=== PATIENT | male | born 1985 | race Caucasian/White ===

== ENCOUNTER 2019-08-20 22:50 | Emergency (ER) | payer MEDICAID, SELFPAY ==
[2019-08-20 22:52] VITALS: BP 129/81; PULSE 95; RESP 16; TEMP 36.7; O2SAT 100; BMI 24.0
[2019-08-20 23:08] LABS: Absolute Lymphocyte Count 5.61 X10^3/uL (0.83-4.51); Absolute Neutrophil Count 7.7 X10^3/uL (2.0-7.7); Basophil# 0.11 X10^3/uL; Basophil% 0.8 % (0-1); Eosinophil# 0.37 X10^3/uL; Eosinophils% 2.5 % (0-5); Hematocrit 50.5 % (40-54); Hemoglobin 17.4 g/dL (13.0-16.5); Lymphocyte # 5.61 X10^3/ul (4.0); Lymphocyte % 38.7 % (19-41); Mean Corp Hgb Conc 34.5 g/dL (32-36); Mean Corpuscular Hgb 31.3 pg (27.0-32.0); Mean Corpuscular Volume 90.8 fL (80-94); Mean Platelet Vol. 9.8 fl (6.2-12.0); Monocyte# 0.65 X10^3/uL; Monocyte% 4.5 % (0-10); NRBC Flagged by Analyzer 0 % (0-5); Neutrophil # 7.65 X10^3/uL (2.7-7.7); Neutrophil % 52.7 % (47-70); POSITIVE DIFFERENTIAL YES; Platelet Count 269 K/mm3 (150-450); RBC Distribution Width CV 11.8 % (11.6-14.6); RBC Distribution Width SD 39.2 fl (35.1-43.9); Red Blood Count 5.56 M/mm3 (4.6-6.2); White Blood Count 14.5 K/mm3 (4.4-11.0)
[2019-08-20 23:09] VITALS: BP 136/97; PULSE 87; RESP 12; O2SAT 99
[2019-08-20 23:11] LABS: Differential Indicated SCAN CRITERIA MET
[2019-08-20 23:12] LABS: Prothrombin Time (Protime)PT. 13.1 SECONDS (11.7-14.9)
[2019-08-20 23:13] LABS: Partial Thromboplast Time 25.2 Seconds (24.1-36.2)
[2019-08-20] MEDS: Ondansetron 4 MG/2 ML Vial IV (23:14)
[2019-08-20] MEDS: 0.9% Normal Saline 1,000 ML 1000 ML IV (23:15)
[2019-08-20] MEDS: fentaNYL 100 MCG/2 ML Ampul 50 MCG IV (23:15)
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
[2019-08-20 23:21] LABS: ALB/GLOB Ratio 1.6 RATIO (0.9-2.4); AST(SGOT) 37 U/L (15-37); Alanine Aminotransfer ALT/SGPT 37 U/L (16-61); Albumin, Serum 4.7 g/dL (3.2-5.0); Alkaline Phosphatase 85 U/L (45-117); Anion Gap 7 (5-15); BUN 8 mg/dL (7-18); BUN/Creat Ratio 8.4 RATIO (10-20); Chloride 107 mmol/L (98-107); Creatinine, Serum 0.96 mg/dL (0.70-1.30); EST Glomerular Filtration Rate 96 mL/min (>60); Est Glom Filt Rate - Afr Amer 116 mL/min (>60); Estimated Creatinine Clearance 115.48 ml/min; Glucose 112 mg/dL (74-106); Potassium 3.2 mmol/L (3.5-5.1); Protein, Total 7.7 g/dL (6.4-8.2); Sodium Level 143 mmol/L (136-145)
--- NOTE | 2019-08-20 23:47 | NURSING ---
GOING TO [facility] ER BY UBALDO ARMANDO
[2019-08-20 23:52] VITALS: BP 132/94; PULSE 99; RESP 16; O2SAT 99
--- NOTE | 2019-08-20 23:53 | ED.RN ---
PER PT REQUEST, ATTEMPTING TO GET AHOLD OF MOTHER. NO ANSWER
[2019-08-20 23:58] LABS: Differential Comment SCANNED; Reactive Lymphocyte 1+
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
== END 2019-08-21 00:05 | disposition short-term general hospital (02) ==
PROVIDERS: Emergency Provider Emergency Medicine
DX: S72.402A Unspecified fracture of lower end of left femur, initial encounter for closed fracture (principal); V89.2XXA Person injured in unspecified motor-vehicle accident, traffic, initial encounter; Y93.9 Activity, unspecified; Y92.410 Unspecified street and highway as the place of occurrence of the external cause; Y99.8 Other external cause status; Z72.0 Tobacco use
CPT/HCPCS: 71045; 72170; 73552; 80053; 85025; 85610; 85730; 96361; 96374; 96375; 99285; J2405

== ENCOUNTER 2019-08-31 18:24 | Emergency (ER) | payer MEDICAID, SELFPAY ==
[2019-08-31 18:25] VITALS: BP 132/81; PULSE 97; RESP 16; TEMP 37.1; O2SAT 100; BMI 19.8
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
[2019-08-31] MEDS: oxyCODONE 5 MG Tablet 10 MG PO (19:49)
[2019-08-31 19:54] VITALS: PULSE 90; RESP 16; O2SAT 97
== END 2019-08-31 19:54 | disposition home or self-care (01) ==
PROVIDERS: Emergency Provider Emergency Medicine
DX: M79.652 Pain in left thigh (principal); M25.562 Pain in left knee; Z98.890 Other specified postprocedural states; F17.200 Nicotine dependence, unspecified, uncomplicated
CPT/HCPCS: 99283

== ENCOUNTER 2019-10-24 14:37 | Emergency (ER) | payer MEDICAID, SELFPAY ==
[2019-10-24 14:38] VITALS: BP 141/68; PULSE 65; RESP 16; TEMP 36.5; O2SAT 100; BMI 19.8
--- NOTE | 2019-10-24 15:26 | VDLE_ITS ---
Reason For Study: PAIN Procedure LEFT Exam performed portable in ED. GSV is normal. A preliminary report was called and/or faxed CFV is compressible, spontaneous, phasic, to ED. competent, and demonstrates normal augmentation. FV is compressible, spontaneous, phasic, competent and demonstrates normal augmentation. POP V is compressible, spontaneous, phasic, competent and demonstrates normal augmentation. T/P Trunk is compressible. PTV is compressible. LT PerV is compressible. Interpretation Summary Deep veins of the left lower extremity are patent and compressible segmentally. There is no evidence of left lower extremity deep vein thrombosis. Valvular competence appears intact within the proximal deep venous system on the left . The left great saphenous vein appears patent and compressible segmentally. Ordering Physician: [place] Performed By: Ambika Garcia, MINO, RVT
[2019-10-24] MEDS: Morphine 4 MG/ML Syringe IM (15:38)
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
[2019-10-24 17:22] VITALS: BP 129/74; PULSE 66; RESP 16; O2SAT 99
== END 2019-10-24 17:23 | disposition home or self-care (01) ==
PROVIDERS: Emergency Provider Emergency Medicine
DX: M25.562 Pain in left knee (principal)
CPT/HCPCS: 73560; 93971; 99282

== ENCOUNTER 2020-09-17 19:53 | Emergency (ER) | payer MEDICAID, SELFPAY ==
[2020-09-17 19:53] VITALS: BP 152/98; PULSE 85; RESP 16; TEMP 37; O2SAT 100; BMI 20.7
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
--- NOTE | 2020-09-17 20:55 | ED.VIS.GEN ---
History of Present Illness Chief Complaint: Mental Health Narrative: Patient eloped prior to being evaluated by myself. He was accompanied by his uncle. He did deny suicidal or homicidal ideation to nursing. Past Medical History - Allergies and Home Meds Allergies/Adverse Reactions: Allergies No Known Allergies Allergy (Verified 09/17/20 19:58) Primary Care Physician: Care Physician,No Primary [Primary Care Provider] - Surgical History: - - Left femur surgery Smoking Status: Heavy Smoker (>10/day) Physical Exam Vital Signs/Narrative: Vital Signs Temp Pulse Resp BP Pulse Ox 09/17/20 19:53 98.6 F 85 16 152/98 H 100 ED Disposition - Plan for ED Patient: Disposition: Home or Assisted Living Referrals: Care Physician,No Primary [Primary Care Provider] -
== END 2020-09-17 20:56 | disposition left against medical advice (07) ==
PROVIDERS: Emergency Provider Emergency Medicine
DX: F17.210 Nicotine dependence, cigarettes, uncomplicated (principal)
CPT/HCPCS: 99282

== ENCOUNTER 2022-01-19 07:49 | Emergency (ER) | payer MEDICAID, SELFPAY ==
[2022-01-19 07:52] VITALS: BP 125/91; PULSE 76; RESP 17; TEMP 36.7; O2SAT 99; BMI 20.7
--- NOTE | 2022-01-19 08:01 | ED.VIS.GI ---
HPI HPI - GI History of Present Illness Chief Complaint: Abd Pain Informant: patient Abdominal Pain/Flank Pain Onset: Today Context: Sudden Onset Timing: Continuous Quality: Sharp Location: Epigastric Worsened by: Nothing Relieved by: Nothing Nausea/Vomiting/Emesis GI Symptom: Positive for Nausea and Vomiting Quality: Positive for Nonbilious; Negative for Blood streaks, Coffee ground and Hematemesis Diarrhea/Melena/Hematochezia GI Symptom: Negative for Diarrhea, Melena and Hematochezia Associated Symptoms Associated Symptoms: Negative for Dysuria, Frequency and Hematuria Narrative Narrative: Patient presents with abdominal pain that began today. Patient states he woke up with the pain. Patient states pain is over the epigastric area. Patient denies any radiation of the pain. Patient describes his pain as sharp and stabbing. Patient states nothing makes it better nothing makes it worse. Patient admits to some nausea and vomiting. Patient states his emesis was just stomach contents. Patient denies any hematemesis or coffee-ground emesis. Patient denies any diarrhea, melena, or hematochezia. Patient denies any urinary complaints. PFSH PFSH Medical History no medical history no medical history Home Medications NK 01/19/22 [History Last Taken Unknown] Allergy/AdvReac Type Severity Reaction Status Date / Time No Known Allergies Allergy Verified 01/19/22 07:50 Surgical History no surgical history no surgical history Social History Smoking Status: Heavy Smoker (>10/day) ROS ROS ED Constitutional Constitutional ED: Denies chills or fever(s) Eyes Eyes: Denies blurry vision or change in vision ENT ENT ED: Denies rhinorrhea or sore throat Cardiovascular Cardiovascular: Denies chest pain or palpitations Respiratory/Chest Respiratory/Chest: Denies cough or dyspnea Gastrointestinal Gastrointestinal: Reports abdominal pain, nausea and vomiting; Denies diarrhea or melena Genitourinary Genitourinary ED: Denies dysuria or hematuria Musculoskeletal Musculoskeletal: Denies back pain or neck pain Integumentary Denies abscess or rash Neurologic Neurologic: Denies headache(s) or weakness Allergic/Immunologic Allergic/Immunologic ED: Denies mouth swelling or urticaria EXAM Physical Exam Const Vital Signs: 01/19/22 07:52 Temperature 98.0 F Temperature Source Temporal Pulse Rate 76 Respiratory Rate 17 Blood Pressure 125/91 H Blood Pressure Mean 102 Pulse Ox 99 Oxygen Delivery Method Room Air Positive well nourished and well developed General Appearance ED: well developed and NAD HEENT Reports moist mucous membranes Neck supple and no JVD Resp normal respiratory effort and clear to auscultation bilaterally Cardio regular rate, regular rhythm and no murmurs GI normal to inspection, nondistended, normoactive bowel sounds Auscultation: normoactive bowel sounds Palpation: soft and tender epigastric, LUQ and RUQ; Negative for guarding or rebound tenderness present Extremity normal to inspection General Extremety ED: Negative for edema or tenderness General Extremity: Negative for edema Neuro oriented x3, CN's II-XII intact bilaterally and no sensory deficits noted Sensorium / Orientation: alert Motor Exam: strength 5/5 throughout Psych mental status grossly normal Skin no rashes or lesions noted MDM MDM MDM Narrative Medical decision making narrative: Patient was given IV fluids and Zofran. CBC shows a slight leukocytosis of 11.6. Comprehensive metabolic profile was within normal limits. Lipase was normal. Urinalysis does not show any evidence of urinary tract infection. Patient was advised of his findings. Patient was given prescriptions for Zofran and omeprazole. Patient was instructed to follow-up with his primary care physician in 3 to 5 days. Patient was instructed to return if worse in any way. Patient understood and was agreeable with the plan. All questions were answered. Lab Data Attestation: I reviewed the patient's lab results. Labs: Laboratory Results - last 24 hr 01/19/22 01/19/22 01/19/22 08:05 08:05 08:51 WBC 11.6 H RBC 5.27 Hgb 15.5 Hct 45.9 MCV 87.1 MCH 29.4 MCHC 33.8 RDW Std Deviation 38.6 RDW Coeff of [place] 12.0 Plt Count 228 MPV 9.9 Immature Gran % (Auto) 0.300 Neut % (Auto) 60.8 Lymph % (Auto) 31.4 Owsley % (Auto) 3.6 Eos % (Auto) 3.2 Baso % (Auto) 0.7 Absolute Neuts (auto) 7.1 Absolute Lymphs (auto) 3.65 Nucleated RBC % 0 Sodium 141 Potassium 3.6 Chloride 108 H Carbon Dioxide 30.0 Anion Gap 3 L BUN 11 Creatinine 1.05 Estim Creat Clear Calc 92.72 Est GFR (MDRD) Af Amer 103 Est GFR (MDRD) Non-Af 85 BUN/Creatinine Ratio 10.5 Glucose 103 Calcium 8.5 Total Bilirubin 0.70 AST 12 L ALT 14 L Alkaline Phosphatase 103 Total Protein 6.4 Albumin 3.8 Globulin 2.6 Albumin/Globulin Ratio 1.5 Lipase 77 Urine Color Yellow Urine Clarity Clear Urine pH 6.0 Ur Specific [place] 1.025 Urine Protein 15 H Urine Glucose (UA) Normal Urine Ketones Negative Urine Occult Blood Negative Urine Nitrite Negative Urine Bilirubin Negative Urine Urobilinogen 1 H Ur Leukocyte Esterase Negative Urine RBC 0-5 SEEN Urine WBC 0-5 SEEN Ur Squamous Epith Cells 0 SEEN Urine Bacteria 0 SEEN Urine Mucus 0 SEEN Discharge Plan Triage Chief Complaint: Abd Pain ED Provider: [place] Dx/Rx/DC Orders Clinical Impression: Abdominal pain, acute, epigastric Instructions: ED Abdominal Pain Unkn Cause Male... Prescriptions: No Action NK RF: 0 Primary Care Provider: Care Physician,No Primary Referrals: Care Physician,No Primary [Primary Care Provider] - Disposition Disposition: Home, Self Care Discharge Date/Time: 01/19/22 10:15
[2022-01-19] MEDS: 0.9% Normal Saline 1,000 ML 1000 ML IV (08:11)
[2022-01-19] MEDS: Ondansetron 4 MG/2 ML Vial IV (08:11)
[2022-01-19 08:16] LABS: Absolute Lymphocyte Count 3.65 X10^3/uL (0.83-4.51); Absolute Neutrophil Count 7.1 X10^3/uL (2.0-7.7); Basophil# 0.08 X10^3/uL; Basophil% 0.7 % (0-1); Eosinophil# 0.37 X10^3/uL; Eosinophils% 3.2 % (0-5); Hematocrit 45.9 % (40-54); Hemoglobin 15.5 g/dL (13.0-16.5); Lymphocyte # 3.65 X10^3/ul (0.83-4.51); Lymphocyte % 31.4 % (19-41); Mean Corp Hgb Conc 33.8 g/dL (32-36); Mean Corpuscular Hgb 29.4 pg (27.0-32.0); Mean Corpuscular Volume 87.1 fL (80-94); Mean Platelet Vol. 9.9 fl (6.2-12.0); Monocyte# 0.42 X10^3/uL; Monocyte% 3.6 % (0-10); NRBC Flagged by Analyzer 0 % (0-5); Neutrophil # 7.07 X10^3/uL (2.7-7.7); Neutrophil % 60.8 % (47-70); Platelet Count 228 K/mm3 (150-450); RBC Distribution Width SD 38.6 fl (35.1-43.9); Red Blood Count 5.27 M/mm3 (4.6-6.2); White Blood Count 11.6 K/mm3 (4.4-11.0)
[2022-01-19 08:33] LABS: ALB/GLOB Ratio 1.5 RATIO (0.9-2.4); AST(SGOT) 12 U/L (15-37); Alanine Aminotransfer ALT/SGPT 14 U/L (16-61); Albumin, Serum 3.8 g/dL (3.2-5.0); Alkaline Phosphatase 103 U/L (45-117); Anion Gap 3 (5-15); BUN 11 mg/dL (7-18); BUN/Creat Ratio 10.5 RATIO (10-20); Calcium,Total 8.5 mg/dL (8.5-10.1); Chloride 108 mmol/L (98-107); Creatinine, Serum 1.05 mg/dL (0.70-1.30); EST Glomerular Filtration Rate 85 mL/min (>60); Est Glom Filt Rate - Afr Amer 103 mL/min (>60); Estimated Creatinine Clearance 92.72 ml/min; Globulin 2.6 g/dL (2.2-4.2); Glucose 103 mg/dL (74-106); Lipase 77 U/L (73-393); Potassium 3.6 mmol/L (3.5-5.1); Protein, Total 6.4 g/dL (6.4-8.2); Sodium Level 141 mmol/L (136-145)
[2022-01-19 08:55] LABS: Bacteria 0 SEEN /hpf (None Seen); Mucous, Urine 0 SEEN /hpf (<or=2+); Squamous Epithelial Cells - UA 0 SEEN /hpf (0-5)
[2022-01-19 08:57] LABS: Color, Urine Yellow (Yellow); Glucose, Dipstick Normal (Normal); Ketone-Dipstick Negative (Negative); Leukocyte Esterase-Dipstick Negative /ul (Negative); Nitrite-Dipstick Negative (Negative); Occult Blood-Urine Negative /ul (Negative); Protein-Dipstick 15 mg/dl (Negative); Specific Gravity, Urine 1.025 (1.002-1.030); Urine Bilirubin Dipstick Negative (Negative); Urine Clarity Clear (Clear); Urine Urobilinogen 1 mg/dl (Normal)
[2022-01-19 12:29] LABS: Red Blood Cells-Urine 0-5 SEEN /hpf (0-5); White Blood Cells 0-5 SEEN /hpf (0-5)
== END 2022-01-19 10:15 | disposition home or self-care (01) ==
PROVIDERS: Emergency Provider Emergency Medicine; Visit Provider Emergency Medicine
DX: R10.13 Epigastric pain (principal); R11.2 Nausea with vomiting, unspecified; F17.200 Nicotine dependence, unspecified, uncomplicated
CPT/HCPCS: 36415; 80053; 81001; 83690; 85025; 96374; 96376; 99283; J7030; A4216; J2405

== ENCOUNTER 2022-04-17 20:49 | Emergency (ER) | payer MEDICAID, SELFPAY ==
[2022-04-17 20:49] VITALS: BP 124/82; PULSE 63; RESP 16; TEMP 36.1; BMI 20.4
[2022-04-17] MEDS: Bupivacaine Mpf 0.5% 30 ML VIAL INFILT (21:49)
--- NOTE | 2022-04-17 22:21 | ED.VIS.DENTA ---
HPI History of Present Illness Chief Complaint: Dental Informant: patient and spouse/S.O. Narrative Narrative: Worsening of right sided upper and lower dental pain over the past few days. Cold sensitivities. Has not seen a dentist in a while. Went to [facility] yesterday prescribed penicillin and naproxen. Additional Tylenol with no relief. History of poor dentition. Prior similar symptoms: Yes PFSH PFSH Medical History no medical history Home Medications oxycodone-acetaminophen 5 mg-325 mg tablet (Percocet) 1 tab PO Q6H PRN pain 3 days #12 tabs 04/17/22 [Rx Last Taken Unknown] Allergy/AdvReac Type Severity Reaction Status Date / Time No Known Allergies Allergy Verified 04/17/22 21:03 Social History Smoking Status: Heavy Smoker (>10/day) ROS ROS ED Constitutional Constitutional ED: Denies chills, fever(s) or sweats Eyes Eyes: Denies change in vision ENT ENT ED: Reports other Details: Right-sided dental pain. ; Denies dysphagia or sore throat Cardiovascular Cardiovascular: Denies chest pain, leg edema, palpitations or racing heartbeat Respiratory/Chest Respiratory/Chest: Denies cough, dyspnea or dyspnea on exertion Gastrointestinal Gastrointestinal: Denies abdominal pain, diarrhea, nausea or vomiting Genitourinary Genitourinary ED: Denies dysuria, hematuria or urinary frequency Musculoskeletal Musculoskeletal: Denies back pain, extremity pain or neck pain Integumentary Denies rash or wounds Neurologic Neurologic: Denies headache(s), paresthesias or weakness EXAM Physical Exam Const Vital Signs: 04/17/22 20:49 04/17/22 20:49 Temperature 96.9 F L 96.9 F L Temperature Source Temporal Temporal Pulse Rate 63 63 Respiratory Rate 16 16 Blood Pressure 124/82 H 124/82 H Blood Pressure Mean 96 96 Positive well nourished and well developed General Appearance ED: well developed and NAD HEENT Reports moist mucous membranes HEENT Narrative: Poor dentition, tooth decay of tooth 2 and 3 along with 30 with tenderness to percussion. Other diffuse dental decay. No sublingual edema. Airway patent. normocephalic and atraumatic Eyes PERRL, EOMs intact bilaterally and conjunctivae normal General Eye ED: Yes normal appearance of both eyes Neck no lymphadenopathy and supple General: Negative for tenderness Chest Wall Chest: Negative for tenderness Resp normal respiratory effort and normal air movement Effort and Inspection: symmetric chest movement; Negative for respiratory distress Cardio regular rate, regular rhythm and no murmurs Peripheral Pulses: pulses 2+ throughout GI normal to inspection, nondistended, normoactive bowel sounds and non-tender Palpation: Negative for guarding or rebound tenderness present Back/Spine no CVA tenderness and no thoracic nor lumbar tenderness Extremity normal to inspection General Extremety ED: Negative for edema or tenderness General Extremity: Negative for edema Neuro oriented x3 and no sensory deficits noted Sensorium / Orientation: awake and alert Skin no rashes or lesions noted and no wounds MDM MDM MDM Narrative Medical decision making narrative: Patient nontoxic vital signs stable. He is currently on antibiotics. I discussed dental block for comfort due to symptoms not improved with naproxen or Tylenol. He agreed with this. Infraorbital block right side along with gum block of the lower molar was performed with improvement of symptoms. Discussed finishing his antibiotics. Dental list was given for follow-up for definitive treatment.OARRS report checked and was negative for any prescriptions. Prescription for oxycodone was written for additional pain control. All questions answered. Procedure note: Dental block: Verbal consent. 25-gauge 1.5 inch needle used. 3 cc of 0.5% bupivacaine used for right infraorbital block, 2 cc use for a gum block of dental 30. Patient taught procedure well. Discharge Plan Triage Chief Complaint: Dental ED Provider: Benjamín Mejia Dx/Rx/DC Orders Clinical Impression: Dentalgia, Dental caries Instructions: ED Dental Pain, ED Dental Cavity Prescriptions: New oxycodone-acetaminophen [Percocet] 5-325 mg tablet 1 tab PO Q6H PRN (Reason: pain) 3 Days Qty: 12 0RF Primary Care Provider: Care Physician,No Primary Referrals: Care Physician,No Primary [Primary Care Provider] - Activity Restrictions/Additional Instructions: Continue and finish your penicillin. Continue your naproxen. Use additional pain medicines as needed. Follow-up with dentist for definitive treatment. Disposition Disposition: Home, Self Care
== END 2022-04-17 22:27 | disposition home or self-care (01) ==
PROVIDERS: Emergency Provider Emergency Medicine; Visit Provider Emergency Medicine
DX: K02.9 Dental caries, unspecified (principal); K08.89 Other specified disorders of teeth and supporting structures; F17.200 Nicotine dependence, unspecified, uncomplicated
CPT/HCPCS: 99282

== ENCOUNTER 2023-12-16 02:01 | Emergency (ER) | payer MEDICAID, SELFPAY ==
[2023-12-16 02:01] VITALS: BP 139/96; PULSE 94; RESP 18; TEMP 36.2; O2SAT 98; BMI 23.2
[2023-12-16 02:04] VITALS: BP 139/96; PULSE 94; RESP 18; TEMP 36.2; O2SAT 98
--- NOTE | 2023-12-16 02:14 | ED.VIS.LOWEX ---
HPI History of Present Illness HPI Narrative: Patient presents with a laceration to his right leg that occurred a day and a half ago. Patient states he cut his leg on the edge of a metal piece of fencing. Patient states he attempted to use superglue at home to close the wound. Patient states that he was cleaning it again today and the superglue came off. Patient states the bleeding started up again. Patient states his pain is mild. Patient states nothing makes it worse and nothing makes it better. Patient denies any paresthesias or weakness. Patient states his last tetanus was approximately 4-1/2 years ago. Chief Complaint: Laceration Informant: patient Occured/Mechanism Comment: Cut on metal edge of fencing Onset/Context/Timing Onset: Yesterday Context: Sudden Onset Timing: Continuous Quality of Pain: Dull Location: Right lower leg Worsened by: Nothing Relieved by: Nothing Associated Symptoms Associated Symptoms: Negative for Parasthesia, Weakness or Loss of Funtion Narrative Tetanus Immunization: <5 years PFSH PFSH Medical History no medical history no medical history Home Medications NK 12/16/23 [History Last Taken Unknown] Allergy/AdvReac Type Severity Reaction Status Date / Time No Known Allergies Allergy Verified 12/16/23 02:01 Surgical History (Updated 12/16/23 @ 02:[address] [place] Calero DO) S/P ORIF (open reduction internal fixation) fracture Social History Smoking Status: Heavy Smoker (>10/day) ROS ROS ED Constitutional Constitutional ED: Denies chills or fever(s) Eyes Eyes: Denies blurry vision or change in vision ENT ENT ED: Denies rhinorrhea or sore throat Cardiovascular Cardiovascular: Denies chest pain or palpitations Respiratory/Chest Respiratory/Chest: Denies cough or dyspnea Gastrointestinal Gastrointestinal: Denies nausea or vomiting Genitourinary Genitourinary ED: Denies dysuria or hematuria Musculoskeletal Musculoskeletal: Denies back pain or neck pain Integumentary Denies abscess or rash Neurologic Neurologic: Denies headache(s) or weakness Allergic/Immunologic Allergic/Immunologic ED: Denies mouth swelling or urticaria EXAM Physical Exam Const Vital Signs: 12/16/23 02:01 12/16/23 02:04 Temperature 97.1 F L 97.1 F L Temperature Source Temporal Temporal Pulse Rate 94 94 Respiratory Rate 18 18 Blood Pressure 139/96 H 139/96 H Blood Pressure Mean 110 110 Pulse Ox 98 98 Oxygen Delivery Method Room Air Room Air Positive well nourished and well developed General Appearance ED: well developed and NAD HEENT Reports moist mucous membranes normocephalic Neck full ROM and supple Extremity Extremity Narrative: There is a 3 cm superficial linear laceration over the lateral aspect of the right lower leg. There is no active bleeding noted. There is mild gapping of the wound margins. There are no foreign bodies noted. There is full range of motion of the right lower extremity. Strength is 5/5 bilaterally in the lower extremities. There are no sensory deficits noted. Pedal pulses are equal bilaterally. Neuro oriented x3, CN's II-XII intact bilaterally, moves all extremities and no sensory deficits noted Sensorium / Orientation: alert Motor Exam: strength 5/5 throughout Psych mental status grossly normal MDM MDM MDM Narrative Medical decision making narrative: Smoking cessation was discussed. Due to the length of time from the initial injury, sutures were not amenable. The wound was cleaned and irrigated with copious amounts of normal saline. The wound was closed with Dermabond skin adhesive. Patient tolerated the procedure well. Patient was instructed to keep the wound clean and dry. Patient was instructed to avoid bacitracin, Neosporin, triple antibiotic ointment, or other Vaseline-based ointment. Patient was instructed to follow-up with his primary care physician in 5 to 7 days. Patient understood and was agreeable with the plan. All questions were answered. Procedures Lacerations Right lower leg: Length: 3 cm Depth: Sub Q Shape: Linear Prep: Sterile Conditions and Chlorhexadine Laceration repair: Dermabond, Irrigated and Wound explored Discharge Plan Triage Chief Complaint: Laceration ED Provider: [place] Calero Dx/Rx/DC Orders Clinical Impression: Tobacco use disorder, Laceration of right lower leg Instructions: ED Laceration Extremity, ED Laceration, Skin Adhesive Prescriptions: No Action NK Primary Care Provider: Care Physician,No Primary Referrals: Mary Mustafa DO [Med Staff - Active Staff] - 5-7 Days Care Physician,No Primary [Primary Care Provider] - Disposition Disposition: Home, Self Care
[2023-12-16 02:45] VITALS: BP 139/96; PULSE 81; RESP 17; TEMP 36.2; O2SAT 99
== END 2023-12-16 02:45 | disposition home or self-care (01) ==
PROVIDERS: Emergency Provider Emergency Medicine; Visit Provider Emergency Medicine
DX: S81.811A Laceration without foreign body, right lower leg, initial encounter (principal); F17.200 Nicotine dependence, unspecified, uncomplicated; W26.8XXA Contact with other sharp object(s), not elsewhere classified, initial encounter
CPT/HCPCS: 12002; 99282

== ENCOUNTER 2024-04-17 16:08 | Emergency (ER) | payer MEDICAID, SELFPAY ==
[2024-04-17 16:09] VITALS: BP 117/77; PULSE 74; RESP 18; TEMP 35.9; O2SAT 100; BMI 21.8
--- NOTE | 2024-04-17 16:31 | EKG12_ITS ---
Test Reason : CP Blood Pressure : / mmHG Vent. Rate : 070 BPM Atrial Rate : 070 BPM P-R Int : 130 ms QRS Dur : 094 ms QT Int : 376 ms P-R-T Axes : 068 068 057 degrees QTc Int : 406 ms Normal sinus rhythm Incomplete right bundle branch block Nonspecific ST abnormality Abnormal ECG Confirmed by JOAQUIN ANDERSON, BREEZY ([id number]), food editor ZULEIKA VALLADARES ([id number]) on 04/22/2024 6:49:16 AM Referred By: DRE/AMBROSE Confirmed By:SARWAT NUÑEZ MD
--- NOTE | 2024-04-17 16:41 | ED.VIS.CHEST ---
HPI History of Present Illness Chief Complaint: Chest Pain Informant: patient Onset/Context/Timing Onset: Weeks Activity at onset: gradual Timing: Continuous Quality: Positive for Dull Location: Left Chest Current Severity: Mild Maximum Severity: Mild Worsened By: Nothing Relieved By: Nothing Associated Symptoms: Negative for Nausea, Vomiting, Diaphoresis, Dyspnea, Cough, Fever, Lightheadedness, Acid Reflux or Palpitations Narrative Narrative: 38-year-old male complaining of atypical nonexertional nonreproducible chest pain for about a month. He said it occurs daily. Is not associated with exertion or shortness of breath. Is not pleuritic. He has no leg pain or swelling. No calf pain. No hemoptysis. He has never had any cardiac history. He denies any recent illness. No fever or chills. No vomiting or diarrhea. Prior Similar Symptoms: Yes Recent Illness/Hospitalization: No CVD Risk Factors: Negative for Hypertension, Diabetes, Hypercholesterolemia or Family History 1' </=55 PE Risk Factors: Negative for Recent Travel/Surgery, Recent Immobilization, Prior DVT or PE, Cancer or OCP + Smoking + >/=35 TAD Risk Factors: Negative for Marfan's Syndrome PFSH PFSH Medical History no medical history no medical history Home Medications ?Medication ?Instructions ?Recorded ?Last Taken ?Type NK 12/16/23 Unknown History Allergy/AdvReac Type Severity Reaction Status Date / Time No Known Allergies Allergy Verified 04/17/24 16:09 Surgical History S/P ORIF (open reduction internal fixation) fracture Social History Smoking Status: Heavy Smoker (>10/day) ROS ROS ED ROS Narrative Atypical chest pain. Constitutional Constitutional ED: Denies chills or fever(s) Eyes Eyes: Reports none ENT ENT ED: Denies ear pain, rhinorrhea or sore throat Cardiovascular Cardiovascular: Reports as per HPI and chest pain; Denies palpitations or racing heartbeat Respiratory/Chest Respiratory/Chest: Denies cough, dyspnea or dyspnea on exertion Gastrointestinal Gastrointestinal: Denies abdominal pain, diarrhea, nausea or vomiting Genitourinary Genitourinary ED: Denies dysuria or hematuria Musculoskeletal Musculoskeletal: Denies arthralgias or back pain Integumentary Denies abscess Neurologic Neurologic: Denies headache(s) Psychiatric Psychiatric: Denies anxiety or depression Endocrine Endocrinology: Denies cold intolerance or heat intolerance Hematologic/Lymphatic Hematologic/Lymphatic: Denies easy bleeding or easy bruising Allergic/Immunologic Allergic/Immunologic ED: Denies mouth swelling or tongue swelling EXAM Physical Exam Narrative Exam Narrative: Well-appearing 38-year-old male. Vital signs stable afebrile. Pulse ox 100% on room air no signs hypoxia. No distress. H EENT exam unremarkable. Neck nontender. Lungs clear. Heart regular rate and rhythm no murmur. Chest wall and ribs nontender. No reproducible chest wall pain. No ecchymosis or bruising. No subcu air or crepitance. Abdomen is soft and nontender. Moving all 4 extremities. 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 Equal symmetrical radial pulses. Dorsi plantarflexion intact. Calves are nontender without edema or cords. Back nontender. He is awake and alert. Const Vital Signs: 04/17/24 16:09 04/17/24 16:46 04/17/24 18:09 Temperature 96.7 F L Temperature Source Temporal Pulse Rate 74 Respiratory Rate 18 Blood Pressure 117/77 117/78 Blood Pressure Mean 90 91 Pulse Ox 100 100 Oxygen Delivery Method Room Air Room Air Positive well nourished and well developed; Negative for obese, cachectic, contractures or unkempt General Appearance ED: well developed and NAD; Negative for unkempt, cachectic, contractures or pallor Nutritional Appearance: Negative for cachectic or obese HEENT Reports moist mucous membranes normocephalic and atraumatic; Negative for trauma or tenderness Eyes PERRL and EOMs intact bilaterally General Eye ED: Negative for pale conjunctiva or scleral icterus Neck no lymphadenopathy, supple and no JVD General: Negative for tenderness Chest Wall inspection of chest normal and palpation of chest normal Chest: Negative for tenderness Resp normal respiratory effort and clear to auscultation bilaterally Effort and Inspection: Negative for respiratory distress Auscultation: Negative for rales, rhonchi, wheezes or diminished lung sounds Cardio regular rate, regular rhythm, S1 normal heart sound, S2 normal heart sound and no murmurs Rate: Negative for bradycardia, tachycardic or other Rhythm: Negative for abnormal rhythm Peripheral Pulses: pulses 2+ throughout GI normal to inspection, nondistended, normoactive bowel sounds, soft to palpation, non-tender and no masses Back/Spine no CVA tenderness and no thoracic nor lumbar tenderness General Back: Negative for CVA tenderness or other Cervical Spine: Negative for cervical spine tenderness Extremity normal to inspection General Extremety ED: Negative for edema, pulses abnormal or tenderness General Extremity: Negative for edema or pulses abnormal Neuro oriented x3 and CN's II-XII intact bilaterally Sensorium / Orientation: awake, alert, oriented to person, oriented to place and oriented to time; Negative for confused, lethargic or stuporous Motor Exam: strength 5/5 throughout Psych mental status grossly normal Appearance: Negative for unkempt Attitude: No agitated Mood & Affect: Negative for depressed, anxious or tearful Skin no rashes or lesions noted and no wounds General Skin Exam: Negative for jaundice or pallor Rashes: No rashes noted Trauma: Negative for abrasion, laceration or puncture Heart Score History: Slightly/Non-Suspicious ECG: Normal Age: </= 45 years Risk Factors: No Risk Factors Troponin: </= Normal Limit Score: 0 MDM MDM MDM Narrative Medical decision making narrative: 38-year-old male with atypical, nonexertional chest pain. Exam normal. Cardiac workup. No risk factors for DVT or PE nor does it sound like it historically. Repeat exam patient doing well at 6:13 PM. Will be discharged home. Chest pain uncertain etiology. History & Record Review Discussion w/independent historian: Patient Additional record(s) reviewed:: Prior inpatient record, Prior outpatient record, Prior ED visit and Prior labs Lab Data Attestation: I reviewed the patient's lab results. Lab results narrative: CBC normal. White count of 10. H&H 15 and 44. Platelets 201. Chemistry is normal gap 2. Normal BUN and creatinine. Troponin 3. Chest x-ray and EKG unremarkable. Labs: Laboratory Results - last 24 hr 04/17/24 16:45 WBC 10.7 RBC 5.04 Hgb 15.1 Hct 44.1 MCV 87.5 MCH 30.0 MCHC 34.2 RDW Std Deviation 37.9 RDW Coeff of [place] 11.9 Plt Count 201 MPV 9.9 Immature Gran % (Auto) 0.400 Neut % (Auto) 71.0 H Lymph % (Auto) 19.6 [place] % (Auto) 6.1 Eos % (Auto) 2.3 Baso % (Auto) 0.6 Absolute Neuts (auto) 7.6 Absolute Lymphs (auto) 2.09 Nucleated RBC % 0 Sodium 139 Potassium 4.4 Chloride 108 H Carbon Dioxide 29.0 Anion Gap 2 L BUN 16 Creatinine 0.86 Estim Creat Clear Calc 113.80 Est GFR (MDRD) Af Amer 127 Est GFR (MDRD) Non-Af 105 BUN/Creatinine Ratio 18.6 Glucose 93 Calcium 8.4 L Troponin I High Sens 3 Radiography Chest X-Ray - ED: 1 View, Read by ED Physician, Normal, Heart, Lungs, Mediastinum, Bony Structures and No Acute Disease Diagnostic Testing: Clinical Impression(s) from Imaging Studies Chest X-Ray 04/17/24 16:48 IMPRESSION: No radiographic evidence of acute cardiopulmonary disease. Electronically Signed: Radha Martinez MD at 17:49 EDT Reading Location ID and State: [address] [place] [address] , Service support , Chest x-ray, portable, 2 views interpreted by myself shows no acute abnormality. Normal cardiac silhouette. Normal lung acosta. No pneumonia. No pneumothorax. Rhythm Strip Rhythm Strip: Sinus Rhythm Rate: 70 Ectopy: None EKG Initial EKG: Attestation: I personally reviewed and interpreted this EKG as follows: Interpretation: Sinus Rhythm and No Acute Injury Pattern Comments: Normal sinus rhythm rate is 70 no acute signs of [place] or ischemia. Incomplete right bundle branch block. Discharge Plan Triage Chief Complaint: Chest Pain ED Provider: Ishaan Newman Dx/Rx/DC Orders Clinical Impression: Chest pain Instructions: ED Chest Pain, Uncertain Cause Prescriptions: No Action NK Primary Care Provider: Care Physician,No Primary Referrals: Care Physician,No Primary [Primary Care Provider] - Activity Restrictions/Additional Instructions: Tylenol and Motrin for your pain. Your workup was completely normal. I do not think this is your heart. Most likely musculoskeletal pain. Print Language: Citizen Of [place] Disposition Disposition: Home, Self Care
[2024-04-17 16:46] VITALS: O2SAT 100
--- NOTE | 2024-04-17 16:48 | RAD_ITS ---
STUDY: X-RAY CHEST REASON FOR EXAM: Male, 38 years old patient with chest pain. TECHNIQUE: Two AP portable views of the chest. COMPARISON: Chest radiograph dated August 20, 2019. FINDINGS: Cardiac monitoring leads are present. The lungs are clear and expanded. There is no demonstrated pleural abnormality. Normal size heart. Normal mediastinum and iveth. Normal visualized pulmonary arteries. Normal visualized aortic arch and descending thoracic aorta. Normal visualized thoracic spine. Normal visualized ribs, clavicles, and shoulders. There is no demonstrated abnormality of the visualized soft tissue structures of the upper abdomen. RAD/Chest 1 View (Portable) IMPRESSION: No radiographic evidence of acute cardiopulmonary disease. Electronically Signed: Radha Martinez MD at 17:49 EDT ,
[2024-04-17 17:03] LABS: Absolute Lymphocyte Count 2.09 X10^3/uL (0.83-4.51); Absolute Neutrophil Count 7.6 X10^3/uL (2.0-7.7); Basophil# 0.06 X10^3/uL; Basophil% 0.6 % (0-1); Eosinophil# 0.25 X10^3/uL; Eosinophils% 2.3 % (0-5); Hematocrit 44.1 % (40-54); Hemoglobin 15.1 g/dL (13.0-16.5); Lymphocyte # 2.09 X10^3/ul (0.83-4.51); Lymphocyte % 19.6 % (19-41); Mean Corp Hgb Conc 34.2 g/dL (32-36); Mean Corpuscular Volume 87.5 fL (80-94); Mean Platelet Vol. 9.9 fl (6.2-12.0); Monocyte# 0.65 X10^3/uL; Monocyte% 6.1 % (0-10); NRBC Flagged by Analyzer 0 % (0-5); Neutrophil # 7.58 X10^3/uL (2.7-7.7); Platelet Count 201 K/mm3 (150-450); RBC Distribution Width CV 11.9 % (11.6-14.6); RBC Distribution Width SD 37.9 fl (35.1-43.9); Red Blood Count 5.04 M/mm3 (4.6-6.2); White Blood Count 10.7 K/mm3 (4.4-11.0)
[2024-04-17 17:15] LABS: Anion Gap 2 (5-15); BUN 16 mg/dL (7-18); BUN/Creat Ratio 18.6 RATIO (10-20); Calcium,Total 8.4 mg/dL (8.5-10.1); Chloride 108 mmol/L (98-107); Creatinine, Serum 0.86 mg/dL (0.70-1.30); EST Glomerular Filtration Rate 105 mL/min (>60); Est Glom Filt Rate - Afr Amer 127 mL/min (>60); Glucose 93 mg/dL (74-106); Potassium 4.4 mmol/L (3.5-5.1); Sodium Level 139 mmol/L (136-145); Troponin-I HS (w/2H Reflex) 3 pg/mL (3.0-78.0)
[2024-04-17 18:09] VITALS: BP 117/78
[2024-04-17 18:19] VITALS: BP 117/78; PULSE 65; RESP 15; TEMP 36.2; O2SAT 100
[2024-04-17 18:51] LABS: Reflex Troponin-HS? (from REC) Y
== END 2024-04-17 18:25 | disposition home or self-care (01) ==
PROVIDERS: Emergency Provider Emergency Medicine; Visit Provider Emergency Medicine
DX: R07.9 Chest pain, unspecified (principal); F17.200 Nicotine dependence, unspecified, uncomplicated
CPT/HCPCS: 71045; 80048; 84484; 85025; 93005; 99284; A4216

== ENCOUNTER 2025-06-29 14:52 | Emergency (ER) | payer MEDICAID, SELFPAY ==
[2025-06-29 14:52] VITALS: BP 123/90; PULSE 84; RESP 16; TEMP 36.4; O2SAT 98; BMI 26.4
--- NOTE | 2025-06-29 17:00 | EX.ED.DYSGE1 ---
HPI History of Present Illness Chief Complaint: Headache Narrative Narrative: Chief complaint and HPI: 39-year-old male with no significant past medical history however does not follow regularly with a physician presents with significant other for evaluation of intermittent headaches as well as constant echoing and hearing of voices. Symptoms have been ongoing for a year and a half. Significant other feels like they have worsened over the last 8 months. Patient states that his dad has a history of a brain hemorrhage and is concerned that he could possibly have a head bleed or clot in his brain. Significant other feels that the patient has been more irritable lately and often finds him talking to the voices. He has never been diagnosed with any psychiatric disorder. Has never seen a psychiatrist. Patient feels that this may be something spiritual. He denies any homicidal or suicidal ideation. Denies any head injury. Review of systems: See HPI Medications: As listed on the chart Allergies: As listed on the chart PFSH: Per chart Vital signs: As listed on the chart. Reviewed. Physical exam: Gen: Alert, NAD Head: Normocephalic, atraumatic Eyes: No sclera icterus, conjunctiva clear, equal pupils Resp: Nonlabored respirations Musc: Moves all extremities PFSH PFSH Home Medications ?Medication ?Instructions ?Recorded ?Last Taken ?Type NK 12/16/23 Unknown History Allergy/AdvReac Type Severity Reaction Status Date / Time No Known Allergies Allergy Verified 06/29/25 14:58 Surgical History S/P ORIF (open reduction internal fixation) fracture Social History Smoking Status: Heavy Smoker (>10/day) EXAM Physical Exam Const Vital Signs: 06/29/25 14:52 Temperature 97.5 F L Temperature Source Temporal Pulse Rate 84 Respiratory Rate 16 Blood Pressure 123/90 H Blood Pressure Mean 101 Pulse Ox 98 Oxygen Delivery Method Room Air MDM MDM MDM Narrative Medical decision making narrative: 39-year-old male with no significant past medical history however does not follow regularly with a physician presents with significant other for evaluation of intermittent headaches as well as constant echoing and hearing of voices. Symptoms have been ongoing for a year and a half. Significant other feels like they have worsened over the last 8 months. Patient states that his dad has a history of a brain hemorrhage and is concerned that he could possibly have a head bleed or clot in his brain. Significant other feels that the patient has been more irritable lately and often finds him talking to the voices. He has never been diagnosed with any psychiatric disorder. Has never seen a psychiatrist. Patient feels that this may be something spiritual. He denies any homicidal or suicidal ideation. Denies any head injury. While speaking with the patient and his significant other. Patient became irritable and became angry with his significant other stating that she is speaking for him. I informed him that hearing voices can be seen with intracranial abnormalities, psychiatric disorders, and other etiologies. I recommended doing a workup including CT head, CTA head and neck, and laboratory workup which would have consisted of basic labs with tox screen. Patient became angry and stated that he wanted to leave. States that I am not helping him. States I will go get baptized and see if the symptoms change. He then walked out of the room before I could finish speaking with him or doing a complete physical exam. Patient did not meet requirements for pink slip. Significant other continued to speak with me and we had a discussion about how I do recommend him getting imaging of the head performed to rule out intracranial abnormality such as a tumor as well as a further workup with a physician. She agreed but states that the patient has chosen to leave. She does feel that he is safe at home. I did inform the significant other that he is welcome to return if he changes his mind. She confirmed understanding. Patient eloped. Impression: 1. Chronic intermittent headache 2. Chronic auditory hallucinations Discharge Plan Triage Chief Complaint: Headache ED Provider: Onur Camp Dx/Rx/DC Orders Prescriptions: No Action NK Primary Care Provider: Care Physician,No Primary Referrals: Care Physician,No Primary [Primary Care Provider, Medical] Print Language: Armenian
--- NOTE | 2025-06-29 17:39 | ED.RN ---
Pt eloped prior to this RN assessing
== END 2025-06-29 17:42 | disposition home or self-care (01) ==
PROVIDERS: Emergency Provider Surgery; Visit Provider Surgery
DX: R44.3 Hallucinations, unspecified (principal); R51.9 Headache, unspecified
CPT/HCPCS: 99282

== ENCOUNTER 2025-07-12 09:00 | Emergency (ER) | payer MEDICAID, SELFPAY ==
[2025-07-12 09:00] VITALS: BP 118/93; PULSE 89; RESP 16; TEMP 36.9; O2SAT 98; BMI 25.7
--- NOTE | 2025-07-12 09:50 | EKG12_ITS ---
Test Reason : Blood Pressure : */* mmHG Vent. Rate : 69 BPM Atrial Rate : 69 BPM P-R Int : 138 ms QRS Dur : 90 ms QT Int : 370 ms P-R-T Axes : 50 33 28 degrees QTcB Int : 396 ms Normal sinus rhythm Nonspecific ST abnormality Abnormal ECG Confirmed by JOAQUIN ANDERSON, BREEZY ([id number]), research editor SYDNEY GUTIERREZ ([id number]) on 07/17/2025 8:23:31 AM Referred By: Confirmed By: BREEZY NUÑEZ MD
--- NOTE | 2025-07-12 10:00 | EX.ED.DYSGE1 ---
HPI History of Present Illness Chief Complaint: Headache Informant: patient Narrative Narrative: Patient is a 39-year-old male with reported history of drug abuse (no current drug use reported) presenting for concern of aneurysm. States he has been getting headaches frequently. He states that the headaches are mild but that he also gets that confusion with him. He states his thoughts seem confused. When he wakes up he hears echoes in his right ear mostly. He comments that he is not sure if these are spirits or not. He is concerned because his father had ruptured aneurysm and he is worried that that could be the cause of his symptoms. He notes that he feels that he is stuck in the past when asked about his confusion. Does not really explain it better than that. Currently does not have a headache. Notes he also has been having some intermittent chest pain most recently yesterday. Was on the left side of his chest but only last for couple seconds. Denies any associated nausea or vomiting. Nuys any numbness or tingling. Denies any vision changes. Denies any HI or SI. Does state that he had a couple episodes of auditory hallucinations where he is hurt voices of people he knows but knows that they are not actually there with him. None currently. Denies any psychiatric diagnosis. Patient was seen and evaluated for the same complaint 2 weeks ago and workup including CTA of the head and neck was ordered however patient then decided he did not want to be seen and left from the emergency room. He is returning today because he does not want to work up. He voices that he felt that the initial physician that was not understanding him and he did not feel comfortable getting a workup at that time. PFSH [facility] Home Medications ?Medication ?Instructions ?Recorded ?Last Taken ?Type hydroxyzine HCl 25 mg tablet 25 mg PO TID PRN anxiety #20 tabs 07/12/25 Unknown Rx Allergy/AdvReac Type Severity Reaction Status Date / Time No Known Allergies Allergy Verified 07/12/25 09:00 Surgical History S/P ORIF (open reduction internal fixation) fracture Social History Smoking Status: Unknown if ever smoked ROS ROS ED Constitutional Constitutional ED: Denies chills or fever(s) Eyes Eyes: Denies blurry vision or change in vision ENT ENT ED: Denies ear pain or rhinorrhea Cardiovascular Cardiovascular: Denies chest pain Respiratory/Chest Respiratory/Chest: Denies cough Gastrointestinal Gastrointestinal: Denies abdominal pain, nausea or vomiting Musculoskeletal Musculoskeletal: Denies arthralgias or myalgias Integumentary Reports other Details: dry skin- reports hx of eczema Neurologic Neurologic: Reports headache(s); Denies paresthesias or weakness Psychiatric Psychiatric: Reports anxiety and other Details: Reports auditory hallucination ; Denies depression, suicidal ideation or suicidal thoughts EXAM Physical Exam Const Vital Signs: 07/12/25 09:00 07/12/25 11:21 Temperature 98.4 F Temperature Source Oral Pulse Rate 89 74 Respiratory Rate 16 16 Blood Pressure 118/93 H 130/90 H Blood Pressure Mean 101 103 Pulse Ox 98 99 Oxygen Delivery Method Room Air Room Air Positive well nourished and well developed General Appearance ED: well developed and NAD HEENT Reports TM's clear and moist mucous membranes HEENT Narrative: Normal ear canals, normal external ears Tympanic Membrane ED: Yes TM's clear Eyes PERRL and EOMs intact bilaterally Neck supple Neck Narrative: No meningeal signs Chest Wall inspection of chest normal Resp normal respiratory effort and clear to auscultation bilaterally Cardio regular rate, regular rhythm and no murmurs GI normal to inspection, nondistended, normoactive bowel sounds Auscultation: normoactive bowel sounds Palpation: soft Extremity normal to inspection General Extremety ED: Negative for edema or tenderness General Extremity: Negative for edema Neuro oriented x3, CN's II-XII intact bilaterally and no sensory deficits noted Neuro Narrative: NIH equals 0 Sensorium / Orientation: alert Motor Exam: strength 5/5 throughout; Negative for general weakness Psych mental status grossly normal Psych Narrative: Patient reports some intermittent auditory hallucinations he currently is not having any. He does not appear internally stimulated. He is calm and cooperative. Skin Skin Narrative: Dry skin throughout consistent with moderate eczema. No cellulitic changes present MDM MDM MDM Narrative Medical decision making narrative: Patient 39-year-old male presenting with intermittent headaches, confusion and hearing changes. Is concerned because his father has a history of aneurysm and is worried he could have a aneurysm. Denies any thunderclap headache. The symptoms are bit more chronic. In addition patient reports he had some intermittent chest pain yesterday. Low risk for ACS but will add on EKG, chest x-ray and troponin. Differential includes space-occupying lesion of the brain, Electrolyte derangement, substance abuse, aneurysm, psychiatric disorder. No fevers and given the chronicity lower suspicion for acute meningitis/encephalitis. Workup including CBC, liver panel and cardiac workup. Workup largely negative. Has a very mild leukocytosis 1.4 which is nonspecific. Patient is not able to provide a urine sample in the emergency room however does not really change disposition so we will cancel it. CT imaging does not show any acute process. X-ray viewed by myself as well as radiology does not show any acute process.Patient evaluated by social work in the emergency room as well. She is concern for possible underlying psychiatric disorder however she is in agreement with me that he does not require pink slip/or emergent psychiatric care and is not a threat to himself or others. Patient counseled that his workup has been largely normal but I am concerned about possible new diagnosis of psychiatric illness. Will be given outpatient referral to neurology and encouraged to follow-up with the counseling center whom he states he has seen in the past. I did discuss that I am concerned that his symptoms might be new onset psychiatric such as schizophrenia. He verbalizes understanding of this. Will be given a short course of hydroxyzine as he does report increased anxiety and states he has found it helpful when he uses girlfriends. Given return precautions. Discharged home in stable condition. Lab Data Attestation: I reviewed the patient's lab results. Labs: Laboratory Results - last 24 hr 07/12/25 10:30 WBC 11.4 H RBC 5.81 Hgb 16.9 H Hct 48.3 MCV 83.1 MCH 29.1 MCHC 35.0 RDW Std Deviation 36.4 RDW Coeff of [place] 12.0 Plt Count 220 MPV 9.5 Immature Gran % (Auto) 0.400 Neut % (Auto) 72.8 H Lymph % (Auto) 20.2 [place] % (Auto) 4.2 Eos % (Auto) 1.8 Baso % (Auto) 0.6 Absolute Neuts (auto) 8.3 H Absolute Lymphs (auto) 2.30 Nucleated RBC % 0 Sodium 138 Potassium 4.4 Chloride 105 Carbon Dioxide 20.5 L Anion Gap 13 BUN 17 Creatinine 0.88 Estim Creat Clear Calc 120.03 Est GFR (MDRD) Non-Af 112 BUN/Creatinine Ratio 18.9 Glucose 100 H Calcium 9.2 Total Bilirubin 0.71 AST 22 ALT 11 Alkaline Phosphatase 87 Troponin T High Sens 7 Total Protein 7.2 Albumin 4.6 Globulin 2.6 Albumin/Globulin Ratio 1.7 Radiography Diagnostic Testing: Clinical Impression(s) from Imaging Studies Chest X-Ray 07/12/25 10:45 IMPRESSION: NO ACUTE FINDINGS. Reading Location: [facility] Head/Neck CTA 07/12/25 10:45 IMPRESSION: No acute abnormality is seen. Dominant right vertebral artery. Small left vertebral artery. Reading Location: [facility]--1 Rhythm Strip Rhythm Strip: Sinus Rhythm Rate: 69 Ectopy: None EKG Initial EKG: Attestation: I personally reviewed and interpreted this EKG as follows: Interpretation: Sinus Rhythm Comments: Normal sinus rhythm at a rate of 69 bpm Normal axis Normal ST segments Prior EKG tracings: available for review Prior: Changed (reversal of nonspecific changes ) Discharge Plan Triage Chief Complaint: Headache ED Provider: Kalpana Harley Dx/Rx/DC Orders Clinical Impression: Frequent headaches, Confusion, Anxiety Instructions: ED Anxiety Reaction, ED Confusion, ED Headache Unspecified Prescriptions: New hydroxyzine HCl 25 mg tablet 25 mg PO TID PRN (Reason: anxiety) Qty: 20 0RF Primary Care Provider: Care Physician,No Primary Referrals: Counseling,Center [Group of Physicians, Medical] Yao Ramos MD [Non-Staff -Ordering Privileges, Neurology] Care Physician,No Primary [Primary Care Provider, Medical] Activity Restrictions/Additional Instructions: Your CT of the brain workup was largely reassuring. I am concerned that your symptoms could be psychiatric in nature do recommend follow-up with psychiatry/counseling center. I do also recommend follow-up for further evaluation with outpatient neurology. No signs of aneurysm brain mass or more severe process today. Print Language: Indonesian Disposition Disposition: Home, Self Care D/C Safety Score for UGIB Assessment Temitope-Blatchford Bleeding Score (GBS): Stratifies upper GI bleeding patients who are low-risk and candidates for outpatient management. Sex: Male Hemoglobin, BUN, Recent Vital Signs: Hgb 16.9 g/dL (13.0-16.5) H 07/12/25 10:30 BUN 17 mg/dL (4-19) 07/12/25 10:30 Pulse Rate 74 Blood Pressure 130/90 Total Risk Score: 1 Score Interpretation: Score of 0: A GBS of 0 is a ?Low Risk? GI bleed, and is highly sensitive (99.6% in a 2007 retrospective study) for predicting which patients did not require any ?medical intervention?: blood transfusion, endoscopy, or surgery. This was confirmed in a 2009 Lanc study where patients with a score of 0 were actually discharged and had no GI bleeding mortality at 6 month followup Score above 0: A GBS greater than zero suggests a ?High Risk? GI bleed that is likely to require ?medical intervention?: transfusion, endoscopy, or surgery. A higher GBS also correlated with a higher likelihood of needing intervention Scores >/= 6 are associated with >50% risk of needing intervention D/C Safety Score for LGIB Assessment Assessment Tool: Readmission and adverse event risk in patients with acute lower GI bleeding. Sex: Male Hemoglobin and Recent Vital Signs: Hgb 16.9 g/dL (13.0-16.5) H 07/12/25 10:30 Pulse Rate 74 07/12/25 11:21 Blood Pressure 130/90 07/12/25 11:21 Probability of safe discharge: 99% Total Risk Score: 1 Score Interpretation: Probability Percentage of safe discharge (absence of rebleeding, blood transfusion, therapeutic intervention, 28 day readmission, or ) Score of 8 or below: Consider discharge, with appropriate precautions. Score of 9 or above: Discharge NOT recommended. Consider admission with further workup and resuscitation as necessary.
--- NOTE | 2025-07-12 10:45 | CT_ITS ---
PROCEDURE: CTA HEAD AND NECK W/ CONTRAST 07/12/2025 REASON FOR EXAM: HEADACHE, CONCERN FOR ANEURYSM TECHNIQUE: Procedure Code: CTCTA.HDNCK Modality: CT Procedure: CTA HEAD AND NECK W/ CONTRAST Multiplanar Sagittal and Coronal images were obtained. 3D post processing was performed CONTRAST: Isovue-300 VOLUME: 100 mL One or more dose reduction techniques were used (e.g., Automated exposure control, adjustment of the mA and/or kV according to patient size, use of iterative reconstruction technique). RADIATION DOSE SUMMARY: CTDlvol: 27.6 mGy DLP: 1544.71 mGycm COMPARISON: None FINDINGS: Aortic Arch: Normal size and branching pattern. No significant atherosclerotic plaque. Brachiocephalic and Subclavians: Unremarkable RIGHT Carotid: Right CCA: Unremarkable. Right ICA: Unremarkable. Right ECA: Unremarkable. LEFT Carotid: Left CCA: Unremarkable. Left ICA: Unremarkable. Left ECA: Unremarkable. Vertebrals: Dominant right vertebral artery. RIGHT Vertebral: Unremarkable. LEFT Vertebral: Small left vertebral artery. Anatomy: [place] anatomy is normal. Aneurysm or avm: No intracranial aneurysms or large vascular malformations are identified. Anterior cerebral arteries: Unremarkable: Middle cerebral arteries: Unremarkable. Basilar artery: Unremarkable. Posterior cerebral arteries: Unremarkable. Other major branches of the posterior circulation: Unremarkable. Major venous structures: Unremarkable. Other findings: Neck: Lungs: Bones: CT/CTA Head AND Neck W/ Contrast IMPRESSION: No acute abnormality is seen. Dominant right vertebral artery. Small left steph tebral artery. Reading Location: [place] [id number]
--- NOTE | 2025-07-12 10:45 | RAD_ITS ---
PROCEDURE: CHEST PA AND LATERAL 07/12/2025 REASON FOR EXAM: CHEST PAIN TECHNIQUE: Procedure Code: RADCXR Modality: DX Procedure: CHEST PA AND LATERAL COMPARISON: April 17, 2024. FINDINGS: Hardware: None Heart: The heart size is normal. Mediastinum: The mediastinal contour is unremarkable. Lungs: The lungs are clear. Bones: The bones are unremarkable. RAD/Chest PA and Lateral IMPRESSION: NO ACUTE FINDINGS. Reading Location: [place] [id number]
[2025-07-12 10:52] LABS: Hematocrit 48.3 % (40-54); Hemoglobin 16.9 g/dL (13.0-16.5); Immature Granulocytes Count 0.050 X10^3/uL (0.0-0.0); Mean Corp Hgb Conc 35.0 g/dL (32-36); Mean Corpuscular Volume 83.1 fL (80-94); Mean Platelet Vol. 9.5 fl (6.2-12.0); NRBC Flagged by Analyzer 0 % (0-5); Platelet Count 220 K/mm3 (150-450); RBC Distribution Width CV 12.0 % (11.6-14.6); RBC Distribution Width SD 36.4 fl (35.1-43.9); Red Blood Count 5.81 M/mm3 (4.6-6.2); White Blood Count 11.4 K/mm3 (4.4-11.0)
[2025-07-12 11:21] VITALS: BP 130/90; PULSE 74; RESP 16; O2SAT 99
[2025-07-12 11:22] LABS: Troponin T High Sensitivity 7 ng/L (<=22)
[2025-07-12 11:23] LABS: AST(SGOT) 22 U/L (<=37); Alanine Aminotransfer ALT/SGPT 11 U/L (<=46); Albumin, Serum 4.6 g/dL (3.5-5.0); Alkaline Phosphatase 87 U/L (40-129); Anion Gap 13 (5-15); BUN 17 mg/dL (4-19); BUN/Creat Ratio 18.9 RATIO (10-20); Calcium,Total 9.2 mg/dL (7.6-11.0); Carbon Dioxide 20.5 mmol/L (21.0-32.0); Chloride 105 mmol/L (98-108); Estimated Creatinine Clearance 120.03 ml/min (50-250); Globulin 2.6 g/dL (2.2-4.2); Glucose 100 mg/dL (70-99); Potassium 4.4 mmol/L (3.3-5.1)
--- NOTE | 2025-07-12 15:27 | CM.ED ---
Social Work SW was asked by ED physician to speak with patient and provide resources. SW introduced self to patient and explained role with [facility]. Patient accepting of visit. During interview, patient was calm and respectful. Patient states he has been living with his girlfriend for 7 years, reports his last job was with a [employer]. Patient states he presented to ED today because he has been having unusual symptoms and wanted to get medically reviewed. Patient states that he hears voices of his past hospital chief executive officer, his mom, his grandma and Trump. Patient states he feels like his privacy is being invaded due to these voices. Patient also states that he periodically sees his friends floating head coming toward him. Patient denies any mental health diagnosis, denies any past mental health services including psychiatry or therapy. SW discussed how these services could be helpful in managing these symptoms, patient stated he wanted to talk to a refined syrup operator first as he feels the hallucinations could be the work of demons. Patient states he thinks being baptized may be beneficial. SW discussed with patient utilizing mental health services should the other routes be unsuccessful. Patient in agreement with same, counseling resources, [facility] and Crisis service information were provided to patient. Flora Rodrigez, DISTRIBUTION CENTER MANAGER, TOOL GRINDER OPERATOR SURFACE
== END 2025-07-12 12:50 | disposition home or self-care (01) ==
PROVIDERS: Emergency Provider Emergency Medicine; Visit Provider Emergency Medicine
DX: R51.9 Headache, unspecified (principal); R41.0 Disorientation, unspecified; R44.3 Hallucinations, unspecified; F41.9 Anxiety disorder, unspecified; D72.829 Elevated white blood cell count, unspecified
CPT/HCPCS: 80307; 70496; 70498; 71046; 80053; 84484; 85025; 93005; 99284; Q9967

== ENCOUNTER 2025-08-08 15:43 | Emergency (ER) | payer MEDICAID, SELFPAY ==
[2025-08-08 15:44] VITALS: BP 134/100; PULSE 120; RESP 16; TEMP 36.3; O2SAT 97; BMI 25.9
[2025-08-08 16:43] VITALS: PULSE 106; RESP 20; O2SAT 98
[2025-08-08 17:05] VITALS: RESP 16
[2025-08-08 17:05] LABS: Hematocrit 49.8 % (40-54); Hemoglobin 17.6 g/dL (13.0-16.5); Immature Granulocytes Count 0.080 X10^3/uL (0.0-0.0); Mean Corp Hgb Conc 35.3 g/dL (32-36); Mean Corpuscular Volume 81.2 fL (80-94); Mean Platelet Vol. 9.7 fl (6.2-12.0); NRBC Flagged by Analyzer 0 % (0-5); Platelet Count 256 K/mm3 (150-450); RBC Distribution Width CV 11.8 % (11.6-14.6); RBC Distribution Width SD 34.2 fl (35.1-43.9); Red Blood Count 6.13 M/mm3 (4.6-6.2); White Blood Count 15.9 K/mm3 (4.4-11.0)
--- NOTE | 2025-08-08 17:17 | EX.ED.VIS.PS ---
HPI HPI - Psych History of Present Illness Chief Complaint: Mental Health Narrative Narrative: Patient is a 40-year-old male presenting to the emergency department for delusions, hallucinations and paranoia. Patient states he has used meth in the past but nothing recently. States that his combat information center officer has made sexual comments to him. States that at home CCTV is trying to tap into his brain. He hears people whispering at night. He denies HI or SI. Denies recent drug or alcohol use. Only reports diagnosis of anxiety in the past, no diagnosis of schizophrenia or bipolar disorder. PFSH PFSH Medical History no medical history Home Medications ?Medication ?Instructions ?Recorded ?Last Taken ?Type hydroxyzine HCl 25 mg tablet 25 mg PO TID PRN anxiety #20 tabs 07/12/25 Unknown Rx melatonin 10 mg capsule 10 mg PO QHS 08/08/25 Unknown History Allergy/AdvReac Type Severity Reaction Status Date / Time No Known Allergies Allergy Verified 08/08/25 15:47 Family History no significant family his Surgical History S/P ORIF (open reduction internal fixation) fracture Surgical History no surgical history Social History Smoking Status: Current every day smoker tobacco type: e-cigarettes ROS ROS ED ROS Narrative see HPI EXAM Physical Exam Narrative Exam Narrative: Vital signs: Reviewed General: Alert and orientedx3. No acute distress. Disheveled appearing, unkempt. HEENT: Head is normocephalic and atraumatic, sinuses nontender, pupils equal round and reactive. Nares are patent. Oropharynx and throat exams normal. Neck: Supple without lymphadenopathy nontender Cardiovascular: Regular rate and rhythm, no murmurs. No rubs or gallops. Normal S1 and S2 Respiratory: Clear to auscultation bilaterally. No wheezes, rales, rhonchi Abdominal: Soft and nontender. Normal bowel sounds. No guarding or rebound. Nonsurgical abdomen Extremities: No tenderness. No bruising. Normal range of motion. Normal sensation. Skin: No rash or redness. Neurological: Cranial nerves II through XII are grossly intact. Normal strength and sensation. Normal cerebellar function The rest of the physical exam is unremarkable Const Vital Signs: 08/08/25 15:44 08/08/25 16:43 08/08/25 17:05 Temperature 97.3 F L Temperature Source Temporal Pulse Rate 120 H 106 H Respiratory Rate 16 20 H 16 Blood Pressure 134/100 H Blood Pressure Mean 111 Pulse Ox 97 98 Oxygen Delivery Method Room Air Room Air 08/08/25 21:00 Temperature Temperature Source Pulse Rate 84 Respiratory Rate 18 Blood Pressure 113/94 H Blood Pressure Mean 100 Pulse Ox 97 Oxygen Delivery Method Room Air Psych cooperative Attitude: paranoid Activity / Motor Behavior: appropriate eye contact and fidgetting Speech: normal speech Thought Process: disorganized and loose associations Thought Content: No suicidality, No homicidality, No phobia(s), No delusion(s) and No hallucination(s) Attention / Concentration: attention grossly intact Memory / Cognition: memory grossly intact MDM MDM MDM Narrative Medical decision making narrative: Patient is a 40-year-old male presenting to the emergency department for delusions, hallucinations or paranoia. Patient was seen and examined. Vitals are stable. Patient resting in bed comfortably no acute distress. Medical clearance labs ordered. I will pink slip the patient. After discussing with him he is in acute psychosis, this may be due to methamphetamine use versus undiagnosed schizophrenia/bipolar disorder. He is unable to care for himself at this time and would benefit from inpatient admission. Alcohol and urine drug screen are negative. Medical clearance labs are largely unremarkable. Social work evaluated the patient and recommended inpatient admission as well. Awaiting acceptance and transport at time of signout. Clinical impression: Acute psyhcosis History & Record Review Discussion w/independent historian: EMS personnel and Patient Lab Data Attestation: I reviewed the patient's lab results. Labs: Laboratory Results - last 24 hr 08/08/25 08/08/25 16:25 16:49 WBC 15.9 H RBC 6.13 Hgb 17.6 H Hct 49.8 MCV 81.2 MCH 28.7 MCHC 35.3 RDW Std Deviation 34.2 L RDW Coeff of Chioma 11.8 Plt Count 256 MPV 9.7 Immature Gran % (Auto) 0.500 Neut % (Auto) 82.8 H Lymph % (Auto) 12.1 L [place] % (Auto) 3.5 Eos % (Auto) 0.5 Baso % (Auto) 0.6 Absolute Neuts (auto) 13.2 H Absolute Lymphs (auto) 1.92 Nucleated RBC % 0 Sodium 140 Potassium 3.9 Chloride 103 Carbon Dioxide 23.4 Anion Gap 14 BUN 19 Creatinine 1.15 Estim Creat Clear Calc 90.94 Est GFR (MDRD) Non-Af 83 BUN/Creatinine Ratio 16.5 Glucose 104 H Calcium 9.5 Urine Opiates Screen NEGATIVE U Buprenorphine Qual NEGATIVE Ur Oxycodone Screen NEGATIVE Urine Methadone Screen NEGATIVE Urine Fentanyl Screen NEGATIVE Ur Barbiturates Screen NEGATIVE Ur Phencyclidine Scrn NEGATIVE Ur Amphetamines Screen NEGATIVE U Benzodiazepines Scrn NEGATIVE Urine Cocaine Screen NEGATIVE U Cannabinoids Screen NEGATIVE Ethyl Alcohol < 10.1 Discharge Plan Triage Chief Complaint: Mental Health ED Provider: Matilde Ghotra Dx/Rx/DC Orders Prescriptions: No Action melatonin 10 mg capsule 10 mg PO QHS hydroxyzine HCl 25 mg tablet 25 mg PO TID PRN (Reason: anxiety) Qty: 20 0RF Primary Care Provider: Care Physician,No Primary Referrals: Care Physician,No Primary [Primary Care Provider, Medical] Print Language: British
[2025-08-08 17:18] LABS: Barbiturate Urine NEGATIVE (< 200 ng/mL); Benzodiazepine Urine NEGATIVE (< 200 ng/mL); PCP Urine NEGATIVE (< 25 ng/mL); THC Urine NEGATIVE (< 50 ng/mL)
[2025-08-08 17:32] LABS: Alcohol, Blood (Medical)-Serum < 10.1 mg/dL (<=10.0)
[2025-08-08 17:33] LABS: Anion Gap 14 (5-15); BUN 19 mg/dL (4-19); BUN/Creat Ratio 16.5 RATIO (10-20); Calcium,Total 9.5 mg/dL (7.6-11.0); Carbon Dioxide 23.4 mmol/L (21.0-32.0); Chloride 103 mmol/L (98-108); Estimated Creatinine Clearance 90.94 ml/min (50-250); Glucose 104 mg/dL (70-99); Potassium 3.9 mmol/L (3.3-5.1)
[2025-08-08] MEDS: hydrOXYzine PAM 25 MG Capsule PO (19:41)
[2025-08-08 21:00] VITALS: BP 113/94; PULSE 84; RESP 18; O2SAT 97
[2025-08-08] MEDS: MELATONIN 10 MG TABLET PO (21:47)
[2025-08-09 05:00] VITALS: BP 126/79; PULSE 63; RESP 16; TEMP 36.9; O2SAT 98
--- NOTE | 2025-08-09 10:50 | CM.ED ---
Addendum entered by Flora Rodrigez 08/09/25 19:22: Social Work Referral not sent to [facility] per family request. Patients medicaid is now showing active. Referral was sent to [facility]. Patient was accepted. Patient was notified of [facility] and transport time. Patient stated he had no further questions or concerns at this time. CHELSEY Chan, DOMINGO Addendum entered by Flora Rodrigez 08/09/25 15:23: Social Work Received forwarded confirmation email from Medicaid office stating that patient is reinstated. Patient not showing active in system yet but contacted [facility] to see if they would accept based off email. [facility] rep asked for referral to be sent. SW contacted Mac at [facility] and requested referral be sent to [facility]. CHELSEY Chan, DOMINGO Addendum entered by Flora Rodrigez 08/09/25 12:01: Social Work Francesca from [facility] [employer] notified SW that she heard from S, that patient did not turn in information needed for his renewal. Francesca completed renewal process and will notify when patient is reinstated. Cori from [facility] updated on same. CHELSEY Chan, DOMINGO Original Note: Social Work SW spoke with Francesca from [facility] [employer] regarding patients Medicaid eligibility. Francesca states that patient told her he filed with the Medicaid office and feels he should have coverage. Francesca reports that she has reached out to Medicaid and will update when she has further information. CHELSEY Chan, DOMINGO
[2025-08-09 13:00] VITALS: BP 128/70; PULSE 88; RESP 16; O2SAT 99
--- NOTE | 2025-08-09 17:16 | ED.RN ---
this rn goes into room d/t pt girlfriend requesting information on when pt was leaving. this rn explains to pt and girlfriend that pt is pink slipped and there is pending admit to [facility]. pt and pt girlfriend then proceed to yell at this rn and state there is nothing wrong with pt, that the hospital is going to get sued by [facility] and [facility] is going to be arrested by [employer] security. korina menard explains to pt that he is not allowed to leave and pt voices understanding. korina o then states if pt tries to leave he will be brought back by police. pt voices understanding. pt girlfriend is asking many questions very rapidly asking what information we have to keep pt here, making mulitple threats about breaking pt out of hosptial. girlfriend was informed that anymore escalation , attitude or disrespect pt girlfriend will be removed from the room and not allowed back. girlfriend voiced understanding
--- NOTE | 2025-08-09 18:44 | PCA ---
[phone]
[2025-08-09 21:00] VITALS: BP 132/91; PULSE 72; RESP 16; RESP 18; TEMP 36.6; O2SAT 98
[2025-08-09] MEDS: MELATONIN 10 MG TABLET PO (21:58)
[2025-08-09] MEDS: hydrOXYzine PAM 25 MG Capsule PO (21:58)
[2025-08-10 05:00] VITALS: BP 110/72; PULSE 82; RESP 18; O2SAT 98
== END 2025-08-10 07:15 ==
PROVIDERS: Emergency Provider Student in an Organized Health Care Education/Training Program; Visit Provider Student in an Organized Health Care Education/Training Program
DX: F22 Delusional disorders (principal); F17.290 Nicotine dependence, other tobacco product, uncomplicated
CPT/HCPCS: 80048; 80307; 82077; 85025; 99285